=== PATIENT | male | born 1980 | race Caucasian/White ===

== ENCOUNTER 2017-08-20 17:31 | Emergency (ER) | payer OTHER ==
[2017-08-20 18:06] VITALS: BP 112/62
[2017-08-20] MEDS ORDERED: TETRACAINE HCL 0.5% OPH SOLN 2 ML OS ONE (18:14)
--- NOTE | 2017-08-20 18:14 | ER Document Report ---
ED Medical Screen (RME) - General Chief Complaint: Foreign Body in Eye Stated Complaint: FOREIGN OBJECT IN EYE Time Seen by Provider: 08/20/17 18:09 Mode of Arrival: Ambulatory Information source: Patient - HPI Notes: 08/20/17 18:12 36-year-old male presents for left eye discomfort since yesterday when he was grinding and despite using safety goggles developed foreign body sensation. He believes he has 2 pieces of metal in his left eye. Healthy eyes in the past without contacts or glasses. Tetanus shot is up-to-date in the last 5 years. I have greeted and performed a rapid initial assessment of this patient. A comprehensive ED assessment with additional diagnostic/treatment considerations , analysis of diagnostic testing and completion of the medical decision making process will be conducted by additional ED providers. - Related Data Allergies/Adverse Reactions: sulfamethoxazole [From ] Allergy (Verified 02/15/13 14:11) unknown trimethoprim [From ] Allergy (Verified 02/15/13 14:11) unknown Past Medical History - Immunizations Hx Diphtheria, Pertussis, Tetanus Vaccination: No Physical Exam - Vital signs Vitals: Temp Pulse Resp BP Pulse Ox 98.2 F 71 14 112/62 97 08/20/17 17:56 08/20/17 17:56 08/20/17 17:56 08/20/17 17:56 08/20/17 17:56 Course - Vital Signs Vital signs: Temp Pulse Resp BP Pulse Ox 98.2 F 71 14 112/62 97 08/20/17 17:56 08/20/17 17:56 08/20/17 17:56 08/20/17 17:56 08/20/17 17:56
--- NOTE | 2017-08-20 20:50 | ER Document Report ---
ED Foreign Body - General Chief Complaint: Foreign Body in Eye Stated Complaint: FOREIGN OBJECT IN EYE Time Seen by Provider: 08/20/17 18:09 Mode of Arrival: Ambulatory Information source: Patient - HPI Location of foreign body: Other - eye Onset: Yesterday Onset/Duration: Sudden Quality of pain: Burning Severity: Moderate Notes: Patient arrives with complaints of left eye pain. States that 2 pieces of metal got in his eye yesterday while working. Continues to have pain in the eye. He denies any blurred or loss vision. He denies any numbness, Argill[place], weakness. Tetanus has been within the last 5 years. He denies any other injuries. No drainage from the eye. He denies any nausea, vomiting, diarrhea, chest pain, shortness of breath. No other complaints at this time. - Related Data Allergies/Adverse Reactions: sulfamethoxazole [From ] Allergy (Verified 02/15/13 14:11) unknown trimethoprim [From ] Allergy (Verified 02/15/13 14:11) unknown Past Medical History - General Information source: Patient - Social History Smoking Status: Current Every Day Smoker Chew tobacco use (# tins/day): No Frequency of alcohol use: Social Drug Abuse: Marijuana Family History: Reviewed & Not Pertinent Patient has suicidal ideation: No Patient has homicidal ideation: No Renal/ Medical History: Denies: Hx Peritoneal Dialysis - Immunizations Hx Diphtheria, Pertussis, Tetanus Vaccination: No Review of Systems - Review of Systems -: Yes All other systems reviewed and negative Physical Exam - Vital signs Vitals: Temp Pulse Resp BP Pulse Ox 98.2 F 71 14 112/62 97 08/20/17 17:56 08/20/17 17:56 08/20/17 17:56 08/20/17 17:56 08/20/17 17:56 - Notes Notes: GENERAL: alert, cooperative, nontoxic, no distress. HEAD: normocephalic, atraumatic EYES: Right eye exam normal with no injection or foreign body. Left conjunctivae is injected. 2 small metallic foreign bodies are seen within the cornea at approximately 4 and 5:00. Pupils are equal round react to light. Extra muscles are intact bilaterally. See chart for visual acuity. No other foreign bodies identified. Fluorocin exam shows dye uptake at the sites of the 2 foreign bodies, no dendritic lesions, negative Carolin sign. No orbital redness or swelling. After foreign bodies were removed, the patient is noted to have residual rust rings. EARS: no external swelling, no external redness. NOSE: atraumatic, no external swelling MOUTH/THROAT: mucous membranes moist and pink NECK: soft, supple, full range of motion, no meningismus. CHEST: no distress, lungs clear and equal throughout. No wheezing, rales, rhonchi. CARDIAC: regular rate and rhythm, no murmur, normal capillary refill, normal pulses. BACK: full range of motion, no CVA tenderness. EXTREMITIES: full range of motion of all extremities. No redness, no swelling. NEURO: alert and oriented 3, no focal deficits, full range of motion of all extremities. PYSCH: appropriate mood, affect. Patient is cooperative. SKIN: pink, warm, dry, no rash. Course - Re-evaluation Re-evalutation: 08/20/17 21:13 Patient is nontoxic appearing with stable vitals. The patient got 2 small pieces of metal in his eye while at work yesterday. Continues to have pain today. No blurred or loss vision. Visual acuity is 20/20 in both eyes. Tetanus is up-to-date. I was able to remove the 2 foreign bodies using a 25- gauge needle. Forcing staining afterwards shows dye uptake just at the sites of the foreign bodies with no other lesions. Negative Carolin sign. Residual rust ring is noted. The patient will be discharged home with a prescription for Polytrim. He states that he has no antibiotic allergies. He will be referred to ophthalmology for follow-up to remove the residual rust rings. The patient's emergency department workup and current diagnosis were explained to the patient and or family. Follow-up instructions were provided. Medications if prescribed were discussed. Instructions for when to return to the emergency department including specific worrisome symptoms were discussed with the patient and/or family. - Vital Signs Vital signs: Temp Pulse Resp BP Pulse Ox 98.2 F 71 14 112/62 97 08/20/17 17:56 08/20/17 17:56 08/20/17 17:56 08/20/17 17:56 08/20/17 17:56 Procedures - Eye Procedure Foreign body removal Foreign body removal: Left Alcaine Drops Administered: Yes Fluorescein applied: Left Notes: 08/20/17 21:14 2 foreign bodies removed from the left cornea. Residual rust ring noted. Patient tolerated procedure well with no immediate complications. Foreign bodies were removed using a 25-gauge needle. Discharge - Discharge Clinical Impression: Foreign body of left cornea with residual material Qualifiers: Encounter type: initial encounter Qualified Code(s): T15.02XA - Foreign body in cornea, left eye, initial encounter Condition: Stable Disposition: HOME, SELF-CARE Instructions: Corneal Foreign Body with Rust ([facility]) Additional Instructions: Use eyedrops as directed. Tylenol and Motrin as needed for pain. Follow-up with the cma at the next available appointment for removal of the rust rings. Follow-up sooner for increased pain, fever, blurred loss vision, or for any further concerns. Prescriptions: Polymyxin B Sulfate/Tmp [Polytrim Oph Soln 10 ml] 2 drop OP Q6H #1 bottle Forms: Smoking Cessation Education Referrals: [facility] [Provider Group] - Follow up as needed [facility] [Provider Group] - Follow up as needed SHERWIN HAYWOOD MD [NO LOCAL MD] - Follow up as needed RAMO KENNEDY, OT [OPTHALMIC WOOD CAR BUILDER] - Follow up as needed DAVION TORREZ DO [ACTIVE STAFF] - Follow up as needed LOURDES HUTTON MD [NO LOCAL MD] - Follow up as needed SHAINA VANG MD [ACTIVE STAFF] - Follow up as needed DEVAUGHN MARCANO MD [NO LOCAL MD] - Follow up as needed QUINTEN CAPUTO MD [ACTIVE STAFF] - Follow up as needed MARCELL CHICAS MD [CONSULTING STAFF] - Follow up as needed SAJAN FELICIANO DO [ACTIVE STAFF] - Follow up as needed KT DANIEL MD [CONSULTING STAFF] - Follow up as needed
== END 2017-08-20 21:24 | disposition home or self-care (01) ==
LOC: ER 17:31
PROC: 08C9XZZ Extirpation of Matter from Left Cornea, External Approach (ICD-10-PCS; principal; 2017-08-20)
DX: T15.02XA Foreign body in cornea, left eye, initial encounter (principal); X58.XXXA Exposure to other specified factors, initial encounter; Y99.0 Civilian activity done for income or pay; F17.200 Nicotine dependence, unspecified, uncomplicated
CPT/HCPCS: 99283

== ENCOUNTER 2019-06-01 23:25 | Emergency (ER) | payer SELFPAY ==
[2019-06-01 23:46] LABS: ABSOLUTE BASOPHILS # (AUTO) 0.1 10^3/uL (0.0-0.2); ABSOLUTE EOSINOPHILS # (AUTO) 0.2 10^3/uL (0.0-0.6); ABSOLUTE LYMPHOCYTES (AUTO) 2.3 10^3/uL (0.5-4.7); ABSOLUTE MONOCYTES (AUTO) 0.7 10^3/uL (0.1-1.4); ABSOLUTE NEUT (AUTO) 3.9 10^3/uL (1.7-8.2); BASOPHILS % (AUTO) 0.8 % (0-2); EOSINOPHILS % (AUTO) 2.4 % (0-6); HEMATOCRIT 43.7 % (37.9-51.0); LYMPHOCYTES % (AUTO) 32.1 % (13-45); MEAN CORPUSCULAR HEMOGLOBIN 33.6 pg (27.0-33.4); MEAN CORPUSCULAR HGB CONC 34.4 g/dL (32.0-36.0); MEAN CORPUSCULAR VOLUME 98 fl (80-97); MONOCYTES % (AUTO) 10.4 % (3-13); PLATELET COUNT 296 10^3/uL (150-450); RED BLOOD COUNT 4.46 10^6/uL (4.35-5.55); RED CELL DISTRIBUTION WIDTH 12.5 % (11.5-14.0); SEGMENTED NEUTROPHILS % (AUTO) 54.3 % (42-78); TOTAL CELLS COUNTED % (AUTO) 100 %; WHITE BLOOD COUNT 7.1 10^3/uL (4.0-10.5)
[2019-06-01 23:56] LABS: ALBUMIN 4.2 g/dL (3.5-5.0); ALCOHOL 25 mg/dL (NONE DETECTED); ALKALINE PHOSPHATASE 77 U/L (38-126); ANION GAP 16 (5-19); ASPARTATE AMINO TRANSFERASE 47 U/L (17-59); BILIRUBIN,DIRECT 0.1 mg/dL (0.0-0.4); BILIRUBIN,TOTAL 0.2 mg/dL (0.2-1.3); BLOOD UREA NITROGEN 13 mg/dL (7-20); CALCIUM 8.9 mg/dL (8.4-10.2); CARBON DIOXIDE 21 mmol/L (22-30); CHLORIDE 103 mmol/L (98-107); GLUCOSE 157 mg/dL (75-110); POTASSIUM 3.3 mmol/L (3.6-5.0); SALICYLATE 1.3 mg/dL (2.0-20.0); TOTAL PROTEIN 7.2 g/dL (6.3-8.2)
[2019-06-01] MEDS ORDERED: NALOXONE HCL INJ 2 MG/2 ML DISP.SYRIN IV ONE (23:56)
[2019-06-01 23:57] LABS: ACETAMINOPHEN < 10 ug/mL (10-30)
[2019-06-02] MEDS ORDERED: NALOXONE HCL INJ 2 MG/2 ML DISP.SYRIN IV ONE (01:21)
[2019-06-02] MEDS ORDERED: NALOXONE HCL INJ 2 MG/2 ML DISP.SYRIN ONE (01:21)
[2019-06-02 02:28] VITALS: BP 129/86
--- NOTE | 2019-06-02 02:51 | ER Document Report ---
Entered by PASQUALE DOLAN SCRIBE 06/02/19 0053 Acting as scribe for:LANRE ETIENNE DO ED Psych Disorder / Suicide - General Chief Complaint: Overdose Stated Complaint: POSSIBLE OVERDOSE Time Seen by Provider: 06/01/19 23:35 Mode of Arrival: Medic Information source: Patient, Emergency Med Personnel Notes: 38-year-old male who presents to the emergency department today because he "did too much" heroin. EMS reports when they arrived on scene the patient was unresponsive and was receiving [id number] resuscitation from a family member. EMS administered 4 mg of Narcan which the patient responded to. Patient was seen earlier today by an eye doctor in [place] for a metal foreign body in his left eye that had been in his eye for "2 to 3 days." Patient states he did heroin tonight to "relieve the pain". When asked if tonight was an attempt to hurt himself he responds with "why would I do that?". Patient was discharged home today with neomycin eyedrops and proparacaine HCl eye drops. Patient states they do relieve the pain somewhat and he last took them a few hours prior to arrival. Patient is somewhat uncooperative so obtaining history is difficult. TRAVEL OUTSIDE OF THE [place] IN LAST 30 DAYS: No - Related Data Allergies/Adverse Reactions: No Known Allergies Allergy (Unverified 06/01/19 23:57) Past Medical History - General Information source: [facility], LAT[facility] Records - Social History Smoking Status: Current Every Day Smoker Cigarette use (# per day): Yes Chew tobacco use (# tins/day): No Frequency of alcohol use: Occasional Drug Abuse: Heroin Lives with: Spouse/Significant other Family History: Reviewed & Not Pertinent Patient has suicidal ideation: No Patient has homicidal ideation: No Renal/ Medical History: Denies: Hx Peritoneal Dialysis - Immunizations Hx Diphtheria, Pertussis, Tetanus Vaccination: No Review of Systems - Review of Systems Constitutional: See HPI, Other - heroin overdose EENT: See HPI, Eye pain - left Cardiovascular: No symptoms reported Respiratory: No symptoms reported Gastrointestinal: No symptoms reported Genitourinary: No symptoms reported Male Genitourinary: No symptoms reported Musculoskeletal: No symptoms reported Skin: No symptoms reported Hematologic/Lymphatic: No symptoms reported Neurological/Psychological: No symptoms reported -: Yes All other systems reviewed and negative Physical Exam - Vital signs Vitals: Temp Pulse Resp BP 97.4 F 75 10 L 115/84 06/01/19 23:25 06/01/19 23:25 06/01/19 23:25 06/01/19 23:25 Interpretation: Normal - General General appearance: Appears well In distress: None - Drowsy but arousable - HEENT Head: Normocephalic, Atraumatic Eyes: Normal Pupils: PERRL - Respiratory Respiratory status: No respiratory distress Chest status: Nontender Breath sounds: Normal Chest palpation: Normal - Cardiovascular Rhythm: Regular Heart sounds: Normal auscultation Murmur: No - Abdominal Inspection: Normal Distension: No distension Bowel sounds: Normal Tenderness: Nontender Organomegaly: No organomegaly - Back Back: Normal, Nontender - Extremities General upper extremity: Normal inspection, Nontender, Normal color, Normal ROM, Normal temperature General lower extremity: Normal inspection, Nontender, Normal color, Normal ROM, Normal temperature, Normal weight bearing. No: Lora's sign - Neurological Neuro grossly intact: Yes Cognition: Normal Orientation: AAOx4 Nile Coma Scale Eye Opening: Spontaneous [place] Coma Scale Verbal: Oriented [place] Coma Scale Motor: Obeys Commands [place] Coma Scale Total: 15 Speech: Normal Motor strength normal: LUE, RUE, LLE, RLE Sensory: Normal - Psychological Associated symptoms: Normal affect, Normal mood - Skin Skin Temperature: Warm Skin Moisture: Dry Skin Color: Normal Course - Re-evaluation Re-evalutation: 06/01/19 23:36 Patient has had a decrease in respiration rate and oxygen saturation, 2 mg of Narcan ordered. 06/02/19 01:22 Patient again has had a decrease in respiration rate and oxygen saturation, 2 mg of Narcan ordered. 06/02/19 02:17 Patient feels better and wants to be discharged home. He is easily arousable to voice. States that he has not used heroin in a while does not plan to use it anymore. He will be given a prescription for Narcan. He is not concerned about withdrawal. He is adamant that he is not suicidal and was not trying to hurt himself tonight. Go from present room also states that she does not feel patient was trying to hurt himself this evening. Stable for discharge home. Return if any further concerns. - Vital Signs Vital signs: Temp Pulse Resp BP Pulse Ox 97.4 F 75 16 116/90 H 100 06/01/19 23:25 06/01/19 23:25 06/02/19 00:31 06/02/19 00:31 06/02/19 00:31 - Laboratory Result Diagrams: 06/01/19 23:31 06/01/19 23:31 Laboratory results interpreted by me: 06/01/19 06/01/19 23:31 23:31 MCV 98 H MCH 33.6 H Potassium 3.3 L Carbon Dioxide 21 L Glucose 157 H Salicylates 1.3 L Acetaminophen < 10 L Critical Care Note - Critical Care Note Total time excluding time spent on procedures (mins): 35 - Evaluation and management of heroin overdose with multiple re-evaluations, counseling of patient and family Discharge - Discharge Clinical Impression: Heroin overdose Qualifiers: Encounter type: initial encounter Injury intent: accidental or unintentional Qualified Code(s): T40.1X1A - Poisoning by heroin, accidental (unintentional), initial encounter Condition: Stable Disposition: HOME, SELF-CARE Instructions: Instructions for Home Care Following a Drug Overdose ([facility]) Prescriptions: Naloxone HCl [Narcan] 4 mg NS DAILYP PRN #2 spray PRN Reason: I personally performed the services described in the documentation, reviewed and edited the documentation which was dictated to the scribe in my presence, and it accurately records my words and actions.
--- NOTE | 2019-06-02 08:52 | EKG REPORT ---
SEVERITY:- NORMAL ECG - SINUS RHYTHM : Confirmed by: Houston Horn MD 02-Jun-2019 08:51:24
== END 2019-06-02 02:28 | disposition home or self-care (01) ==
LOC: ER 23:25
DX: T40.1X1A Poisoning by heroin, accidental (unintentional), initial encounter (principal); F17.210 Nicotine dependence, cigarettes, uncomplicated; H57.12 Ocular pain, left eye
CPT/HCPCS: 93005; 36415; 80307 ×3; 85025; 80053; 93010; J2310 ×2; 96374; 96376; 99284